=== PATIENT | male | born 1965 | race Caucasian/White ===

== ENCOUNTER 2018-06-22 12:51 | Emergency (ER) | payer OTHER ==
[~2018-06-22] VITALS: Ht 165.1 cm; Wt 77.1 kg
--- NOTE | 2018-06-22 13:43 | ED INFLUENZA/URI COMPLAINT ---
History of Present Illness General Chief Complaint: Upper Respiratory Sx/Fever Stated Complaint: COUGH,CONGESTION X 7 DAYS Source: patient Exam Limitations: language barrier Vital Signs & Intake/Output Vital Signs & Intake/Output Vital Signs Date Time Temp Pulse Resp B/P B/P Pulse O2 O2 Flow FiO2 Mean Ox Delivery Rate 06/22 1529 97.5 69 18 123/61 100 Room Air 06/22 1528 Room Air 06/22 1510 98 06/22 1306 94.5 64 24 138/79 95 Room Air Allergies Coded Allergies: NO KNOWN ALLERGIES (06/22/18) Reconcile Medications Albuterol Sulfate (Proventil Hfa) 90 MCG HFA.AER.AD 2 PUF INH Q4 COUGH Azithromycin 250 MG TABLET 1 DP PO AD BRONCHITIS 2 the first day followed by 1 for days 2-5 Benzonatate 200 MG CAPSULE 1 CAP PO TIDPRN COUGH Triage Note: C/O FEVER AND COUGH X 9 DAYS, UNRELIEVED WITH OTC MEDS. DENIES CHEST PAIN OR SOB. Triage Nurses Notes Reviewed? yes Onset: Abrupt Duration: day(s): (5-6) Timing: recent history Severity: moderate, severe HPI: 53-year-old male comes into the emergency room for further evaluation of runny nose congestion and coughing mucous production with intermittent fever chills body aches. Symptoms been going on since this past Sunday. Denies any chest pain or shortness of breath. He comes in for further evaluation. (Tc Kumar) Past History Travel History Traveled to [place] past 21 day No Medical History Any Pertinent Medical History? see below for history Cardiovascular: hypertension, hyperlipidemia Surgical History Surgical History: non-contributory Psychosocial History What is your primary language [facility] Tobacco Use: Current Daily Use Daily Tobacco Use Amount/Type: => 5 Cigarettes daily ETOH Use: occasional use Family History Hx Contributory? No (Tc Kumar) Review of Systems Review of Systems Constitutional: Reports: see HPI. EENTM: Reports: see HPI. Respiratory: Reports: see HPI. Cardiovascular: Reports: no symptoms. GI: Reports: no symptoms. Genitourinary: Reports: no symptoms. Musculoskeletal: Reports: no symptoms. Skin: Reports: no symptoms. Neurological/Psychological: Reports: no symptoms. Hematologic/Endocrine: Reports: no symptoms. Immunologic/Allergic: Reports: no symptoms. All Other Systems: Reviewed and Negative (Tc Kumar) Physical Exam Physical Exam General Appearance: well developed/nourished, no apparent distress, alert, awake Head: atraumatic, normal appearance Eyes: Bilateral: normal appearance, EOMI. Ears, Nose, Throat: normal ENT inspection, moist mucous membrane, hearing grossly normal Neck: normal inspection Respiratory: no respiratory distress, rhonchi Cardiovascular: regular rate/rhythm Gastrointestinal: soft Extremities: normal inspection Neurologic/Psych: awake, alert, oriented x 3 Skin: intact, normal color Core Measures Sepsis Present: No Sepsis Focused Exam Completed? No (Tc Kumar) Progress Differential Diagnosis: influenza, otitis, pneumonia, sinusitis, bronchitis Plan of Care: Orders Procedure Date/time Status XRY-CHEST XRAY, TWO VIEWS 06/22 1305 Active Diagnostic Imaging: Viewed by Me: Radiology Read. Discussed w/RAD: Radiology Read. Radiology Impression: PATIENT: LUCA DURON PRESENT AGE: 53 PATIENT ACCOUNT NO: [id number] : 64 LOCATION: [facility] ORDERING PHYSICIAN: Tc FREDERICK SERVICE DATE: 06/22/18 EXAM TYPE : RAD - XRY-CHEST XRAY, TWO VIEWS EXAMINATION: XR CHEST CLINICAL INFORMATION: Cough COMPARISON: None TECHNIQUE: 2 views of the chest were obtained. FINDINGS: The lungs are clear. There is no airspace consolidation, vascular congestion, or effusion. The heart is normal in size. The hilar and mediastinal contours and bony structures are unremarkable. IMPRESSION: Lungs clear. DICTATED BY: Kareem Raymundo MD DATE/TIME DICTATED:06/22/181426 COPY COORDINATOR:DULCE DATE/ TIME TRANSCRIBED:06/22/181426 CONFIDENTIAL, DO NOT COPY WITHOUT APPROPRIATE AUTHORIZATION. <Electronically signed in Other Vendor System> SIGNED BY: Kareem Raymundo MD 06/22/18 1271 Initial ED EKG: none (Tc Kumar) Departure Departure Disposition: HOME OR SELF CARE Condition: Stable Clinical Impression Primary Impression: Bronchitis Referrals: Remedios Agustin DO (PCP/Family) Additional Instructions: Taking Z-Alexis, albuterol, and Tessalon Perles as prescribed. Follow-up with primary care doctor. Return if any concerns worsening symptoms. Please go over all results of today's visit with your primary care doctor. Contact your primary care doctor to let them know you were here in the emergency room. There may be nonspecific findings which may not be related to your visit today here in the emergency room but may require further evaluation and chronic monitoring by your primary care doctor. If you had a laceration today the chance of foreign body always remains. You should follow-up with your primary care doctor for recheck in 3-5 days for a wound check. If you had an x-ray done there is a chance that a fracture could have been missed on initial read and you should follow-up with your primary care doctor for repeat x-rays if symptoms persist. If your blood pressure was elevated here in the emergency room please have rechecked by karl primary care doctor within the next 48. If you were prescribed a narcotic here in the emergency room or any type of controlled substances you're not allowed to drive while taking this medication or operate any type of heavy machinery. Narcotics can make you feel lightheaded dizziness nausea and can cause constipation. You may need to picked edge sewing machine operator a stool softener. Thank you for choosing [facility] emergency room. Please return to the emergency room immediately if you have any other concerns worsening of symptoms. Departure Forms: Customer Survey General Discharge Information Prescriptions: Current Visit Scripts Azithromycin 1 DP PO AD #6 TAB 2 the first day followed by 1 for days 2-5 Albuterol Sulfate (Proventil Hfa) 2 PUF INH Q4 #1 INHAL Benzonatate 1 CAP PO TIDPRN #30 CAP Comments 06/22/2018 3:36:48 PM Patient clinically looks well. No apparent distress. Symptoms most consistent with bronchitis. Follow-up with PCP. Return if any other concerns worsening symptoms. (Uday FREDERICK,Tc) PA/INSTRUCTOR LOOPING Co-Sign Statement Statement: ED Attending supervision documentation- [] I saw and evaluated the patient. I have also reviewed all the pertinent lab results and diagnostic results. I agree with the findings and the plan of care as documented in the PA's/INSTRUCTOR LOOPING's documentation. [X] I have reviewed the ED Record and agree with the PA's/INSTRUCTOR LOOPING's documentation. [] Additions or exceptions (if any) to the PAs/INSTRUCTOR LOOPING's note and plan are summarized below: [] (Mel GREEN,Black Bundy
--- NOTE | 2018-06-22 14:34 | RADIOLOGY REPORT ---
EXAMINATION: XR CHEST CLINICAL INFORMATION: Cough COMPARISON: None TECHNIQUE: 2 views of the chest were obtained. FINDINGS: The lungs are clear. There is no airspace consolidation, vascular congestion, or effusion. The heart is normal in size. The hilar and mediastinal contours and bony structures are unremarkable. IMPRESSION: Lungs clear.
[2018-06-22] MEDS ORDERED: PROVENTIL HFA6.7 GM INH (15:05)
[2018-06-22] MEDS ORDERED: AZITHROMYCIN250 M1 PO (15:05)
[2018-06-22] MEDS ORDERED: BENZONATATE200 M1 PO (15:05)
[2018-06-22 15:29] VITALS: BP 123/61
== END 2018-06-22 15:30 ==
LOC: ERH 12:51
DX: J40 Bronchitis, not specified as acute or chronic (principal); F17.210 Nicotine dependence, cigarettes, uncomplicated
CPT/HCPCS: 1263; 71046

== ENCOUNTER 2018-08-06 10:37 | Emergency (ER) | payer OTHER ==
[~2018-08-06] VITALS: Ht 167.6 cm; Wt 68.0 kg
[~2018-08-06 10:37] MED LIST: AZITHROMYCIN250 M1 PO; BENZONATATE200 M1 PO; PROVENTIL HFA6.7 GM INH
--- NOTE | 2018-08-06 15:00 | ED INFLUENZA/URI COMPLAINT ---
History of Present Illness General Chief Complaint: Upper Respiratory Sx/Fever Stated Complaint: NO RELIEF OF BRONCHITIS Source: patient, family, old records Exam Limitations: no limitations Vital Signs & Intake/Output Vital Signs & Intake/Output Vital Signs Date Time Temp Pulse Resp B/P B/P Pulse O2 O2 Flow FiO2 Mean Ox Delivery Rate 08/06 1537 56 18 141/52 98 Room Air 08/06 1056 97.5 60 20 144/73 97 Room Air Allergies Coded Allergies: NO KNOWN ALLERGIES (06/22/18) Reconcile Medications Brompheniramine/Pseudoephed/Dm (Bromfed Dm Cough Syrup) 2 MG-30 MG-10 MG/5 ML SYRUP 5-10 ML PO Q4-6 PRN PRN cough Gemfibrozil 600 MG TABLET 1 TAB PO BID CHOLESTEROL (Reported) Lisinopril/Hydrochlorothiazide (Lisinopril-Hctz 20-25 MG Tab) 20 MG-25 MG TABLET 1 TAB PO DAILY heart (Reported) Prednisone (Deltasone) 20 MG TABLET 2 TAB PO DAILY cough Valsartan/Hydrochlorothiazide (Diovan Hct 80-12.5 MG Tablet) 80 MG-12.5 MG TABLET 1 TAB PO DAILY HEART (Reported) Triage Note: DIAGNOSED WITH BRONCHITIS LAST MONTH AND WAS ON ANTIBIOTICS X 5 DAYS BUT PT STATES HE NEVER GOT BETTER. +PRODUCTIVE COUGH, DIFFICULT TO SLEEP AT NIGHT D/T COUGHING Triage Nurses Notes Reviewed? yes Onset: Gradual Duration: week(s): Timing: recent history Severity: moderate HPI: 53yo male presents to ED complaining of persistent cough x 1 month. Patient was seen previously in the ED about 1 month ago and was prescribed abx and cough medications. Despite taking these medications patient reports his symptoms are persistent. Patient is also seen his primary care physician twice and had labs drawn as an outpatient, most recent labs were completed today. Patient states cough is productive of yellow sputum. Patient reports weight loss of 18 pounds over the past few months which he attributes to working outside over the summer. Patient also reports intermittent night sweats at night. Primary care physician is aware of the symptoms which prompted lab testing. Denies chest pain, dyspnea, hemoptysis, recent travel, leg swelling, abdominal pain, fevers, chills, vomiting. Past History Travel History Traveled to [place] past 21 day No Medical History Any Pertinent Medical History? see below for history Cardiovascular: hypertension, hyperlipidemia Surgical History Surgical History: non-contributory Psychosocial History What is your primary language Telugu Tobacco Use: Current Not Daily ETOH Use: occasional use Illicit Drug Use: denies illicit drug use Family History Hx Contributory? No Review of Systems Review of Systems Constitutional: Reports: no symptoms. EENTM: Reports: no symptoms. Respiratory: Reports: see HPI. Cardiovascular: Reports: no symptoms. GI: Reports: no symptoms. Genitourinary: Reports: no symptoms. Musculoskeletal: Reports: no symptoms. Skin: Reports: no symptoms. Neurological/Psychological: Reports: no symptoms. Hematologic/Endocrine: Reports: no symptoms. Immunologic/Allergic: Reports: no symptoms. All Other Systems: Reviewed and Negative Physical Exam Physical Exam General Appearance: well developed/nourished, no apparent distress, alert, awake Head: atraumatic, normal appearance Eyes: Bilateral: normal appearance. Ears, Nose, Throat: moist mucous membrane, hearing grossly normal Neck: normal inspection, supple, full range of motion Respiratory: normal breath sounds, no respiratory distress, lungs clear Cardiovascular: regular rate/rhythm Gastrointestinal: soft, non-tender Back: normal inspection, normal range of motion Extremities: normal inspection, normal range of motion Neurologic/Psych: awake, alert, oriented x 3 Skin: intact, normal color, warm/dry Core Measures Sepsis Present: No Sepsis Focused Exam Completed? No Progress Differential Diagnosis: pneumonia, sinusitis, bronchitis, allergies, reactive airway disease, asthma Plan of Care: Laboratory Tests 08/06/18 1428: Sodium Cancelled, Potassium Cancelled, Chloride Cancelled, Carbon Dioxide Cancelled, Anion Gap Cancelled, BUN Cancelled, Creatinine Cancelled, BUN/ Creatinine Ratio Cancelled, Glucose Cancelled, Calcium Cancelled, Total Bilirubin Cancelled, AST Cancelled, ALT Cancelled, Alkaline Phosphatase Cancelled, Total Protein Cancelled, Albumin Cancelled, Globulin Cancelled, Albumin/Globulin Ratio Cancelled, CBC w Diff Cancelled, WBC Cancelled, RBC Cancelled, Hgb Cancelled, Hct Cancelled, MCV Cancelled, MCH Cancelled, MCHC Cancelled, RDW Cancelled, Plt Count Cancelled, MPV Cancelled Patient's outpatient labs are reviewed, BNP was ordered by his primary care physician which is stable. Patient's chest x-ray is stable compared to his previous study. Physical exam findings are within normal limits, patient's vital signs are stable. He has no chest pain or dyspnea. Chief complaint his chronic cough. There is a suspicion for reactive airway condition. Will initiate prednisone and outpatient tried different cough suppressant. He was instructed to follow-up with his primary care doctor and continue to monitor for further weight loss and night sweats which will require further workup. Patient understands he is to follow-up. He was informed that if his respiratory symptoms are persistent he may require follow-up with a electric organ assembler. Diagnostic Imaging: Viewed by Me: Radiology Read. Discussed w/RAD: Radiology Read. CXR Impression: PATIENT: LUCA DURON PRESENT AGE: 53 PATIENT ACCOUNT NO: [id number] : 64 LOCATION: [facility] ORDERING PHYSICIAN: Lesia FREDERICK SERVICE DATE: 08/06/18 EXAM TYPE: RAD - XRY-CHEST XRAY, TWO VIEWS EXAMINATION: XR CHEST CLINICAL INFORMATION: Persistent cough COMPARISON: 06/22/2018 TECHNIQUE: 2 views of the chest were obtained. FINDINGS: The lungs are well-inflated and clear. Trachea is midline in position. No interstitial disease, consolidation, mass or pleural effusion. Nipple shadows are seen on the frontal radiograph. The cardiac silhouette is normal in size. The mediastinal, hilar and diaphragmatic contours are normal. Bones are unremarkable. The visualized upper abdomen is normal. IMPRESSION: No acute pulmonary disease. DICTATED BY: Jose Aguirre MD DATE/TIME DICTATED:08/06/181513 GOAT FARMER:DULCE DATE/TIME TRANSCRIBED:08/06/181513 CONFIDENTIAL, DO NOT COPY WITHOUT APPROPRIATE AUTHORIZATION. <Electronically signed in Other Vendor System> SIGNED BY: Jose Aguirre MD 08/06/181518 Initial ED EKG: none Departure Departure Disposition: HOME OR SELF CARE Condition: Stable Clinical Impression Primary Impression: Cough Referrals: Remedios Agustin DO (PCP/Family) Saskia GREEN,Damián Mcbride Additional Instructions: Take prednisone as prescribed for cough. Take Bromfed as prescribed as needed for cough. Follow up with her primary care doctor this week. You may require follow-up with a electric organ assembler if your symptoms are persistent. You are given the name of a electric organ assembler who works through [employer]. Return if worsening symptoms or concerns. Please note that there might be incidental findings in your evaluation that are unrelated to the current emergency department visit. Please notify your primary care doctor about this emergency department visit in order to obtain and review all of the testing performed so that these incidental findings can be monitored as needed. If you had an x-ray performed, please understand that some fractures may not be seen on the initial set of x-rays. If your symptoms persist you might need a repeat set of x-rays to check for such a fracture. If you had a laceration evaluated, please understand that foreign bodies such as glass or wood may not be visible to the naked eye or on plain x-rays. If the wound becomes red, swollen, increasingly more painful or if there is any drainage from the wound, please have it reevaluated by a physician for the possibility of a retained foreign body. If you're unable to follow up as outlined in the discharge instructions please return to the emergency department. Thank you for choosing the [facility] Emergency Department for your care. It was a pleasure to serve you today. Departure Forms: Customer Survey General Discharge Information Prescriptions: Current Visit Scripts Prednisone (Deltasone) 2 TAB PO DAILY #10 TAB Brompheniramine/Pseudoephed/Dm (Bromfed Dm Cough Syrup) 5-10 ML PO Q4-6 PRN PRN cough #120 ML
[2018-08-06] MEDS ORDERED: LISINOPRIL-HCT1 EAC1 PO (15:18)
[2018-08-06] MEDS ORDERED: DIOVAN HCT 80-1 EACH PO (15:18)
[2018-08-06] MEDS ORDERED: GEMFIBROZIL600 M1 PO (15:18)
--- NOTE | 2018-08-06 15:19 | RADIOLOGY REPORT ---
EXAMINATION: XR CHEST CLINICAL INFORMATION: Persistent cough COMPARISON: 06/22/2018 TECHNIQUE: 2 views of the chest were obtained. FINDINGS: The lungs are well-inflated and clear. Trachea is midline in position. No interstitial disease, consolidation, mass or pleural effusion. Nipple shadows are seen on the frontal radiograph. The cardiac silhouette is normal in size. The mediastinal, hilar and diaphragmatic contours are normal. Bones are unremarkable. The visualized upper abdomen is normal. IMPRESSION: No acute pulmonary disease.
[2018-08-06 15:37] VITALS: BP 141/52
[2018-08-06] MEDS ORDERED: DELTASONE20 MG PO (15:44)
[2018-08-06] MEDS ORDERED: BROMFED DM COU118 M1 PO (15:44)
== END 2018-08-06 15:52 ==
LOC: ERH 10:37
DX: R05 Cough (principal); Z72.0 Tobacco use; I10 Essential (primary) hypertension
CPT/HCPCS: 71046